=== PATIENT | female | born 1960 | race Caucasian/White ===

== ENCOUNTER → 2017-06-10 | Outpatient (CLI) | payer SELFPAY ==
[2017-06-21 14:26] LABS: Source CERV/ENDOCERVICAL
== END | disposition home or self-care (01) ==
LOC: LAB SHORT 19:27 → LAB 19:27
PROVIDERS: Internal Medicine
DX: Z01.419 Encounter for gynecological examination (general) (routine) without abnormal findings (principal); R87.810 Cervical high risk human papillomavirus (HPV) DNA test positive; R87.610 Atypical squamous cells of undetermined significance on cytologic smear of cervix (ASC-US); Z87.42 Personal history of other diseases of the female genital tract
CPT/HCPCS: G0145

== ENCOUNTER → 2017-06-10 | Outpatient (CLI) | payer SELFPAY | END | disposition home or self-care (01) | LOC: LAB SHORT 08:18 → PLD 08:18 | DX: C53.9 Malignant neoplasm of cervix uteri, unspecified (principal) | CPT/HCPCS: 88305 ==

== ENCOUNTER → 2023-04-21 | Outpatient (CLI) | payer MEDICARE ==
[2023-04-28 18:56] LABS: HPV GENOTYPE 16 BY PCR Negative; HPV GENOTYPE 18 BY PCR Negative; HPV SOURCE Cerv/Endocerv; HPV, OTHER HIGH RISK BY PCR Negative
== END ==
LOC: LAB SHORT 13:42 → LAB 13:42
PROVIDERS: Internal Medicine
DX: Z00.00 Encounter for general adult medical examination without abnormal findings (principal); Z91.89 Other specified personal risk factors, not elsewhere classified
CPT/HCPCS: 87624; 88142

== ENCOUNTER → 2023-09-22 | Outpatient (CLI) | payer MEDICARE ==
[~2023-09-22] MED LIST: LOSARTAN POTASS25 M2 PO
[2023-09-22 15:36] LABS: BASOPHILS ABSOLUTE AUTO 0.04 K/mm3 (0.00-0.23); BASOPHILS PERCENT AUTO 0 % (0-2); EOSINOPHILS ABSOLUTE AUTO 0.17 K/mm3 (0.00-0.68); EOSINOPHILS PERCENT AUTO 2 % (0-6); Hematocrit 39.5 % (33.0-51.0); Hemoglobin 13.3 g/dL (11.5-16.0); IMMATURE GRAN ABSOLUTE AUTO 0.03 K/mm3 (0.00-0.10); IMMATURE GRAN PERCENT AUTO 0 % (0-1); LYMPHOCYTES PERCENT AUTO 28 % (21-46); MONOCYTES ABSOLUTE AUTO 0.58 K/mm3 (0.16-1.47); MONOCYTES PERCENT AUTO 6 % (4-13); Mean Corpuscular HGB Conc 33.7 g/dL (31.5-36.5); Mean Corpuscular Volume 98 fL (80-100); Mean Platelet Volume 10.3 fL (9.1-12.4); NEUTROPHILS ABSOLUTE AUTO 6.24 K/mm3 (1.96-9.15); NEUTROPHILS PERCENT AUTO 64 % (41-73); Platelet Count 316 K/mm3 (150-400); RDW Coefficient Variation 13.4 % (11.7-14.2); RDW Standard Deviation 48.5 fL (35.1-46.3); Red Blood Cell Count 4.03 M/mm3 (3.80-5.20); White Blood Cell Count 9.76 K/mm3 (4.00-11.30)
[2023-09-22 15:55] LABS: C-REACTIVE PROTEIN, EXT RANGE <0.290 mg/dL (0.000-0.300)
[2023-09-22 16:03] LABS: Alanine Aminotransfer (ALT/SGP 20 U/L (12-78); Albumin, Blood 3.7 g/dL (3.4-5.0); Albumin/Globulin Ratio 1.2 (0.8-1.8); Alk Phos 63 U/L (50-136); Anion Gap 7 mmol/L (3-11); Aspartate Aminotrans (AST/SGOT 16 U/L (12-37); Bilirubin, Total 0.3 mg/dL (0.1-1.0); Blood Urea Nitrogen 19 mg/dL (8-24); Bun/Creatinine Ratio 25.2 (12.0-20.0); CO2, Blood 25 mmol/L (21-32); Calcium, Blood 9.1 mg/dL (8.5-10.1); Chloride, Blood 111 mmol/L (98-108); Creatinine, Blood 0.75 mg/dL (0.40-1.00); Glomerular Filtration Rate 88 (60-); Glucose, Blood 91 mg/dL (70-99); Potassium, Blood 4.4 mmol/L (3.5-5.5); Sodium, Blood 139 mmol/L (136-145); Total Protein, Blood 6.7 g/dL (6.4-8.2)
== END | disposition home or self-care (01) ==
LOC: LAB 11:00 → LAB SHORT 11:00
PROVIDERS: Internal Medicine
DX: H53.2 Diplopia (principal); R51.9 Headache, unspecified
CPT/HCPCS: 80053; 85025; 85651; 86140

== ENCOUNTER 2024-02-04 21:54 | Inpatient (IN) | payer MEDICARE ==
[~2024-02-04] VITALS: Ht 162.6 cm; Wt 69.5 kg
[2024-02-04 22:46] LABS: BASOPHILS ABSOLUTE AUTO 0.05 K/mm3 (0.00-0.23); BASOPHILS PERCENT AUTO 0 % (0-2); EOSINOPHILS ABSOLUTE AUTO 0.15 K/mm3 (0.00-0.68); EOSINOPHILS PERCENT AUTO 1 % (0-6); Hematocrit 40.4 % (33.0-51.0); Hemoglobin 13.6 g/dL (11.5-16.0); IMMATURE GRAN ABSOLUTE AUTO 0.05 K/mm3 (0.00-0.10); IMMATURE GRAN PERCENT AUTO 0 % (0-1); LYMPHOCYTES PERCENT AUTO 15 % (21-46); MONOCYTES ABSOLUTE AUTO 0.76 K/mm3 (0.16-1.47); MONOCYTES PERCENT AUTO 5 % (4-13); Mean Corpuscular HGB 32.9 pg (26.0-34.0); Mean Corpuscular HGB Conc 33.7 g/dL (31.5-36.5); Mean Corpuscular Volume 98 fL (80-100); NEUTROPHILS ABSOLUTE AUTO 11.22 K/mm3 (1.96-9.15); NEUTROPHILS PERCENT AUTO 78 % (41-73); Platelet Count 317 K/mm3 (150-400); RDW Coefficient Variation 13.3 % (11.7-14.2); RDW Standard Deviation 48.3 fL (35.1-46.3); Red Blood Cell Count 4.13 M/mm3 (3.80-5.20); White Blood Cell Count 14.33 K/mm3 (4.00-11.30)
[2024-02-04 23:07] LABS: Albumin, Blood 3.9 g/dL (3.4-5.0); Albumin/Globulin Ratio 1.1 (0.8-1.8); Bilirubin, Total 0.3 mg/dL (0.1-1.0); Calcium, Blood 9.2 mg/dL (8.5-10.1); Creatinine, Blood 0.88 mg/dL (0.40-1.00); Globulin, Blood 3.5 g/dL (2.2-4.0); Potassium, Blood 4.1 mmol/L (3.5-5.5); Total Protein, Blood 7.4 g/dL (6.4-8.2)
[2024-02-05] VITALS (16 sets, daily range): BP systolic 110–165; BP diastolic 65–91
[2024-02-05] MEDS ORDERED: Aspirin 325 MG Tab PO ONE (00:25)
[2024-02-05] MEDS ORDERED: Nitroglycerin 0.4 MG SUBL SL PRN ×2 (00:25→01:30)
[2024-02-05 00:59] LABS: D-Dimer, Quantitative 0.56 mg/L FEU (0.00-0.52)
[2024-02-05 01:24] LABS: Anti-Xa UFH, PHA Monitoring <0.10 IU/mL; International Normalized Ratio 0.92; Prothrombin Time Results 9.9 Sec (9.7-11.5)
[2024-02-05] MEDS ORDERED: NS 1,000 ML IV SCH (01:25)
[2024-02-05] MEDS ORDERED: FLU VACC TS2024-25(6MOS UP)/PF 45 MCG/0.5 ML SYRINGE IM ONE (01:25)
[2024-02-05] MEDS ORDERED: FentaNYL Citrate 50 MCG/ML 2 ML Injection IV PRN ×2 (01:25→04:00)
[2024-02-05] MEDS ORDERED: Ondansetron HCl 2 MG / ML 2ML Vial IV PRN (01:30)
[2024-02-05] MEDS ORDERED: Dose Adjust by Pharmacy XX STA (01:44)
[2024-02-05] MEDS ORDERED: Heparin Sodium 5000 Units/ML 1ML MDV IV ONE (01:45)
[2024-02-05] MEDS ORDERED: Heparin Sodium,Porcine/0.5 NS 500 ML IV SCH (01:45)
[2024-02-05] MEDS ORDERED: Clopidogrel Bisulfate 300 MG Cap PO ONE (02:00)
[2024-02-05] MEDS ORDERED: Atorvastatin 40 MG Tab PO SCH (02:00)
[2024-02-05] MEDS ORDERED: Aspir 8181 MG PO (03:39)
--- NOTE | 2024-02-05 05:35 | NUR ---
SHIFT SUMMARY PT ADMITTED TO PCU FROM ED WITH NSTEMI. CARDIOLOGY CONSULTED BY THIS RN. S/W ANSWERING SERVICE. DR. JOHNSON TO SEE PATIENT IN AM. PT ENDORSES CHEST PAIN UPON ADMISSION, IMPROVED WITH PRN FENTANYL, SEE MAR FOR DETAILS. PT IS HYPERTENSIVE WITH SBP 160'S UPON INITIAL ASSESSMENT. TROPONIN 2104. PT HAS BEEN NPO SINCE ADMISSION. IMAGING DONE, SEE REPORTS FOR DETAILS.
--- NOTE | 2024-02-05 09:00 | NUR ---
AT BEDSIDE: CAME TO BEDSIDE AND ASSESSED PATIENT. SHE STATED SHE WAS HAVING SOME SHOULDER PAIN AND WAS GIVEN FETANYL PER EMAR BY THIS RN. MD NOTIFIED ABOUT HIGH BLOOD PRESSURE AND WHAT HOME MEDICATIONS SHE USES, AWAITING FURTHER ORDERS. STATED TO PATIENT SHE WILL HAVE THE HEART DOCTOR ON BOARD FOR A POSSIBLE ANGIOGRAM TODAY.
--- NOTE | 2024-02-05 09:10 | NUR ---
TO BEDSIDE: CAME TO BEDSIDE TO ASSESS PATIENT AND RECEIVED CONSENT FOR PROCEDURE. STATED HE WILL BE CALLING IN HIS TEAM TO GET AN ANGIOGRAM DONE FOR THE PATIENT TODAY.
[2024-02-05] MEDS ORDERED: Verapamil HCL 2.5 MG/ML 2ML Injection ONE (09:16)
[2024-02-05] MEDS ORDERED: Midazolam HCl 1MG / ML 2ML Vial ONE ×2 (09:17→10:49)
[2024-02-05] MEDS ORDERED: Heparin Sodium 1000 Units/ML 10ML MDV ONE ×2 (09:17→10:02)
[2024-02-05] MEDS ORDERED: NS 250 ML IV ONE (09:17)
[2024-02-05] MEDS ORDERED: NS 2,000 ML IV ONE (09:17)
[2024-02-05] MEDS ORDERED: FentaNYL Citrate 50 MCG/ML 2 ML Injection ONE ×3 (09:17→11:58)
[2024-02-05] MEDS ORDERED: Nitroglycerin 2 MG/20 ML BTL ONE (09:18)
[2024-02-05 09:29] LABS: Albumin, Blood 3.2 g/dL (3.4-5.0); Albumin/Globulin Ratio 1.1 (0.8-1.8); Bilirubin, Total 0.4 mg/dL (0.1-1.0); Bun/Creatinine Ratio 27.6 (12.0-20.0); Calcium, Blood 8.9 mg/dL (8.5-10.1); Creatinine, Blood 0.72 mg/dL (0.40-1.00); Total Protein, Blood 6.2 g/dL (6.4-8.2)
[2024-02-05 09:32] LABS: BASOPHILS ABSOLUTE AUTO 0.04 K/mm3 (0.00-0.23); BASOPHILS PERCENT AUTO 0 % (0-2); EOSINOPHILS ABSOLUTE AUTO 0.16 K/mm3 (0.00-0.68); EOSINOPHILS PERCENT AUTO 2 % (0-6); Hematocrit 36.1 % (33.0-51.0); Hemoglobin 12.3 g/dL (11.5-16.0); IMMATURE GRAN ABSOLUTE AUTO 0.03 K/mm3 (0.00-0.10); IMMATURE GRAN PERCENT AUTO 0 % (0-1); LYMPHOCYTES ABSOLUTE AUTO 3.28 K/mm3 (0.84-5.20); LYMPHOCYTES PERCENT AUTO 34 % (21-46); MONOCYTES ABSOLUTE AUTO 0.61 K/mm3 (0.16-1.47); MONOCYTES PERCENT AUTO 6 % (4-13); Mean Corpuscular HGB 32.9 pg (26.0-34.0); Mean Corpuscular HGB Conc 34.1 g/dL (31.5-36.5); Mean Corpuscular Volume 97 fL (80-100); Mean Platelet Volume 9.4 fL (9.1-12.4); NEUTROPHILS ABSOLUTE AUTO 5.67 K/mm3 (1.96-9.15); NEUTROPHILS PERCENT AUTO 58 % (41-73); Platelet Count 301 K/mm3 (150-400); RDW Coefficient Variation 13.2 % (11.7-14.2); RDW Standard Deviation 47.5 fL (35.1-46.3); Red Blood Cell Count 3.74 M/mm3 (3.80-5.20); White Blood Cell Count 9.79 K/mm3 (4.00-11.30)
--- NOTE | 2024-02-05 09:49 | NUR ---
PATIENT LEFT TO [facility]ARMACY CALLED ABOUT HEPARIN PAUSED.
[2024-02-05] MEDS ORDERED: Clopidogrel Bisulfate 300 MG Cap ONE (10:31)
[2024-02-05] MEDS ORDERED: Atropine Sulfate 0.1 MG/ML 10ML SYR ONE (10:47)
--- NOTE | 2024-02-05 12:53 | NUR ---
PT ARRIVED BACK TO PCU 2 VIA HOSPITAL BED FROM [facility] MACHINE TENDER POST ANGIO AT 1250. PT ARRIVED WITH TR BAND TO R RADIAL WITH ARM BOARD. NO HEMATOMA OR BRUISING NOTED TO R WRIST. VSS. MAP >65. PT A&OX4. WAS ABLE TO AMBULATE TO THE BATHROOM WITH STANDBY ASSIST. PT DENIES ANY CP OR SOB AT THIS TIME.
[2024-02-05] MEDS ORDERED: NS 750 ML IV ONE (13:15)
--- NOTE | 2024-02-05 13:50 | NUR ---
PATIENT ARRIVED BACK TO UNIT AND VITAL SIGNS STABLE. PATIENT COMPLAINING ABOUT MILD PAIN IN THE RIGHT RADIAL ACCESS SITE, CALLED MD TO GET TYLENOL ADDED TO EMAR. FLUIDS STARTED AND AT BEDSIDE. PATIENT ATE LUNCH.
--- NOTE | 2024-02-05 17:11 | NUR ---
END OF SHIFT SUMMARY: PATIENT IS ALERT AND ORIENTED X4 AND COOPERATIVE WITH HER CARE. IS SATTING >92% ON ROOM AIR, EVEN AND UNLABORED BREATHING. ON TELE SHWOING SINUS WITH RATE IN 70'S. PATIENT STATED THIS MORNING SHE HAD MORE SHOULDER PAIN THAT FELT LIKE IT WAS RADIATING TO HER CHEST AND WAS GIVEN FETANYL PER EMAR. HAD AN ANGIOGRAM DONE AND TWO STENTS WERE PLACED. RIGHT RADIAL ACCESS SITE WAS RECOVERED WELL WITH NO HEMATOMA OR BLEEDING, HAS A CLEAR DRESSING WITH WRIST BOARD PLACED. PATIENT AWARE NOT TO PUT ALL WEIGHT ON WRIST. VITAL SIGNS STABLE AND PATIENT DENIED ANY CHEST PAIN SINCE ANGIOGRAM. HAD FAMILY AT BEDSIDE AND WAS ABLE TO GET REST. NO SIGNIFICANT EVENTS, WILL CONTINUE TO MONITOR UNTIL ONCOMING GRAVEL ROOFER RN.
[2024-02-06 03:26] VITALS: BP 132/67
--- NOTE | 2024-02-06 05:13 | NUR ---
SHIFT SUMMARY PT IS S/P ANGIO. RIGHT RADIAL SITE RECOVERED WITHOUT SITE COMPLICATION. NO ACUTE EVENTS OVERNIGHT.
[2024-02-06 07:27] VITALS: BP 139/78
[2024-02-06] MEDS ORDERED: Aspirin 81 MG Chew PO SCH (09:00)
[2024-02-06] MEDS ORDERED: Clopidogrel Bisulfate 75 MG Tab PO SCH (09:00)
[2024-02-06] MEDS ORDERED: Losartan Potassium 25 MG Tab PO SCH (10:05)
[2024-02-06] MEDS ORDERED: Metoprolol Succinate 25 MG TABCR PO SCH (10:05)
[2024-02-06 11:07] LABS: Hemoglobin 11.7 g/dL (11.5-16.0); Mean Corpuscular HGB 32.3 pg (26.0-34.0); Mean Corpuscular HGB Conc 33.4 g/dL (31.5-36.5); Mean Corpuscular Volume 97 fL (80-100); Mean Platelet Volume 9.2 fL (9.1-12.4); Platelet Count 288 K/mm3 (150-400); RDW Coefficient Variation 13.3 % (11.7-14.2); RDW Standard Deviation 48.3 fL (35.1-46.3); Red Blood Cell Count 3.62 M/mm3 (3.80-5.20); White Blood Cell Count 10.15 K/mm3 (4.00-11.30)
[2024-02-06 11:29] LABS: Anion Gap 8 mmol/L (3-11); Blood Urea Nitrogen 15 mg/dL (8-24); Bun/Creatinine Ratio 20.4 (12.0-20.0); CO2, Blood 23 mmol/L (21-32); Calcium, Blood 8.4 mg/dL (8.5-10.1); Chloride, Blood 117 mmol/L (98-108); Creatinine, Blood 0.74 mg/dL (0.40-1.00); Glomerular Filtration Rate 90 (60-); Glucose, Blood 94 mg/dL (70-99); Phosphorus, Blood 2.3 mg/dL (2.5-4.9); Potassium, Blood 4.4 mmol/L (3.5-5.5); Sodium, Blood 144 mmol/L (136-145)
[2024-02-06 11:49] VITALS: BP 136/62
--- NOTE | 2024-02-06 13:47 | NUR ---
MD CALLED: VOICEMAIL PLACED TO MD AWAITING A CALL BACK.
--- NOTE | 2024-02-06 14:04 | NUR ---
CALL PLACED TO MD NO ANSWER AND DISCUSSED WITH HVAC MECHANIC.
[2024-02-06] MEDS ORDERED: ATOR40TA PO (15:28)
[2024-02-06] MEDS ORDERED: CLOP75 PO (15:28)
[2024-02-06] MEDS ORDERED: METO25ER PO (15:29)
[2024-02-06] MEDS ORDERED: NITR.4SL SL (15:30)
[2024-02-06] MEDS ORDERED: K-Phos Origina500 MG PO (15:32)
--- NOTE | 2024-02-06 16:03 | NUR ---
DISCHARGE NOTE: PATIENT IS ALERT AND ORIENTED X4 AND SATTING >92% ON ROOM AIR. WENT OVER DISCHARGE INFORMATION AND PATIENT WAS AWARE OF THE NEW MEDICATIONS THAT WERE STARTED AND SENT TO [facility]. PATIENT KNOWS TO FOLLOW UP WITH PRIMARY CARE PROVIDER WITHIN ONE WEEK. IV REMOVED AND COBAND WITH GAUZE PLACED ON IT. PATIENT TOOK BELONGINGS AND WALKED OUT TO MEET WHO IS HER RIDE.
== END 2024-02-06 15:52 | disposition home or self-care (01) | DRG 322 ==
LOC: ER 21:54 → ERHOLD 21:55 → PCU 02-05 03:24
PROVIDERS: Internal Medicine; Student in an Organized Health Care Education/Training Program; ADMIT Internal Medicine
PROC: 027035Z Dilation of Coronary Artery, One Artery with Two Drug-eluting Intraluminal Devices, Percutaneous Approach (ICD-10-PCS; principal; 2024-02-05)
PROC: B2111ZZ Fluoroscopy of Multiple Coronary Arteries using Low Osmolar Contrast (ICD-10-PCS; 2024-02-05)
PROC: 4A023N7 Measurement of Cardiac Sampling and Pressure, Left Heart, Percutaneous Approach (ICD-10-PCS; 2024-02-05)
DX: I21.4 Non-ST elevation (NSTEMI) myocardial infarction (principal); I10 Essential (primary) hypertension; F17.210 Nicotine dependence, cigarettes, uncomplicated; E83.39 Other disorders of phosphorus metabolism; Z79.82 Long term (current) use of aspirin; Z79.899 Other long term (current) drug therapy; M25.519 Pain in unspecified shoulder; Z71.6 Tobacco abuse counseling; I25.5 Ischemic cardiomyopathy
CPT/HCPCS: 36415; 71046; 71275; 74174; 76937; 80053; 80069; 83036; 83690; 83880; 84443; 84484; 85025; 85027; 85347; 85379; 85520; 85610; 85730; 92978; 92979; 93005; 93010; 93306; 93458; 93571; 93572; 96365-59; 96374-59; 96376; 99152; 99153; 99285-25; A9270; C1725; C1753; C1769; C1874; C1887; C1894; C9600; G0378; J0461; J1644; J2250; J3010; J7030; J7050; Q9967

== ENCOUNTER 2024-09-12 09:17 | Day surgery (SDC) | payer MEDICARE ==
[2024-09-12] VITALS (21 sets, daily range): BP systolic 104–170; BP diastolic 55–74
[~2024-09-12] VITALS: Ht 157 cm; Wt 69.6 kg
[~2024-09-12 09:17] MED LIST changes: +Aspir 8181 MG PO; +CLOP75 PO; +K-Phos Origina500 MG PO; +LIPITOR80 MG PO; +METO25ER PO; +NITR.4SL SL; +SODIUM HYALURONATE PO
[2024-09-12] MEDS ORDERED: Chlorhexidine Mouth Care 15 ML UDC MT SCH (10:30)
[2024-09-12] MEDS ORDERED: Ropivacaine 0.5% HCl/Pf 123.125 MG,EPINEPHrine HCL 0.25 MG,Ketorolac Tromethamine 15 MG... INFIL SCH (10:30)
[2024-09-12] MEDS ORDERED: CeFAZolin Sodium 2,000 MG in NS 100 ML IV SCH ×2 (10:30→20:00)
[2024-09-12] MEDS ORDERED: Tranexamic Acid 100 ML IV SCH (10:37)
[2024-09-12] MEDS ORDERED: Mepivacaine MPF 2% Inj 20 ML Vial ONE (10:38)
[2024-09-12] MEDS ORDERED: AMLODIPINE BESY10 MG PO (10:54)
[2024-09-12] MEDS ORDERED: NITR.4SL SL (10:57)
[2024-09-12] MEDS ORDERED: Midazolam HCl 1MG / ML 2ML Vial ONE (11:28)
[2024-09-12] MEDS ORDERED: FentaNYL Citrate 50 MCG/ML 2 ML Injection ONE ×3 (11:28→13:54)
[2024-09-12] MEDS ORDERED: ePHEDrine Sulfate 50 MG/ML 1ML Injection ONE (11:49)
[2024-09-12] MEDS ORDERED: Ondansetron HCl 2 MG / ML 2ML Vial IV PRN ×2 (11:50→12:35)
[2024-09-12] MEDS ORDERED: Metoclopramide HCl 5MG / ML 2ML Vial IV PRN (11:50)
[2024-09-12] MEDS ORDERED: Magnesium Hydroxide Conc 10 ML UDC PO PRN (11:55)
[2024-09-12] MEDS ORDERED: HYDROmorphone HCl/Pf 1MG SYR IV PRN ×3 (12:00→12:35)
[2024-09-12] MEDS ORDERED: HYDROmorphone HCl/Pf 1MG SYR ONE ×3 (12:08→14:10)
[2024-09-12] MEDS ORDERED: Dexamethasone Sod Phos 10 MG/ML 1ML VIAL ONE (12:13)
[2024-09-12] MEDS ORDERED: Ondansetron HCl 2 MG / ML 2ML Vial ONE (12:13)
[2024-09-12] MEDS ORDERED: FentaNYL Citrate 50 MCG/ML 2 ML Injection IV PRN ×2 (12:35)
[2024-09-12] MEDS ORDERED: Prochlorperazine Edisylate 10 mg Vial IV PRN (12:40)
--- NOTE | 2024-09-12 13:45 | NUR ---
09/12/24 Kezia Almonte AFTER DRAPING WAS REMOVED SKIN TEAR WAS NOTED ON IN THE MIDDLE OF THE RIGHT ANTERIOR CALF. THE SIZE WAS ABOUT 1 INCH BY 3 INCH. CARLO GRAVES WAS NOTIFIED. HE CAME INTO THE OR AND DRESSED THE WOUND WITH MASTISOL, STERI STRIPS, 4X4 AND TEGADERM.
[2024-09-12] MEDS ORDERED: Ketorolac Tromethamine 30mg Vial ONE (14:06)
--- NOTE | 2024-09-12 14:43 | NUR ---
POST OP ARRIVAL TO SURGICAL UNIT VIA HOSPITAL BED. ALERT, ORIENTED, BUT PAINFUL. ASSESSMENT CHARTED. DENIES N/V SO SNACKS & DRINKS GIVEN. WILL WEAN O2 APPROP.
[2024-09-12] MEDS ORDERED: Ketorolac Tromethamine 15mg Vial IV SCH (18:00)
--- NOTE | 2024-09-13 04:06 | NUR ---
NOC SUMMARY- PT PAIN MAANGED WELL. PT HAS BEEN RESTING COMFORTABLY. PT AMBULATORY AND VOIDING. DRESSING IS C/D/I. CALL LIGHT IN REACH.
[2024-09-13 05:41] LABS: BASOPHILS ABSOLUTE AUTO 0.02 K/mm3 (0.00-0.23); BASOPHILS PERCENT AUTO 0 % (0-2); EOSINOPHILS ABSOLUTE AUTO 0.00 K/mm3 (0.00-0.68); EOSINOPHILS PERCENT AUTO 0 % (0-6); Hematocrit 30.1 % (33.0-51.0); Hemoglobin 10.5 g/dL (11.5-16.0); IMMATURE GRAN ABSOLUTE AUTO 0.05 K/mm3 (0.00-0.10); IMMATURE GRAN PERCENT AUTO 0 % (0-1); LYMPHOCYTES ABSOLUTE AUTO 0.97 K/mm3 (0.84-5.20); LYMPHOCYTES PERCENT AUTO 6 % (21-46); MONOCYTES ABSOLUTE AUTO 0.77 K/mm3 (0.16-1.47); MONOCYTES PERCENT AUTO 5 % (4-13); Mean Corpuscular HGB Conc 34.9 g/dL (31.5-36.5); Mean Corpuscular Volume 98 fL (80-100); NEUTROPHILS ABSOLUTE AUTO 15.15 K/mm3 (1.96-9.15); NEUTROPHILS PERCENT AUTO 89 % (41-73); NRBC ABSOLUTE 0.00 K/mm3 (0.00-0.02); NRBC Auto 0.0 /100 WBC (0.0-0.2); Platelet Count 352 K/mm3 (150-400); RDW Coefficient Variation 13.2 % (11.7-14.2); RDW Standard Deviation 47.1 fL (35.1-46.3)
[2024-09-13 06:28] LABS: Anion Gap 6.0 mmol/L (3-11); Blood Urea Nitrogen 27.0 mg/dL (8-24); CO2, Blood 27.0 mmol/L (21-32); Calcium, Blood 8.3 mg/dL (8.5-10.1); Chloride, Blood 107.0 mmol/L (98-108); Creatinine, Blood 0.82 mg/dL (0.40-1.00); Glucose, Blood 137.0 mg/dL (70-99); Potassium, Blood 4.3 mmol/L (3.5-5.5); Sodium, Blood 136.0 mmol/L (136-145)
[2024-09-13 07:23] VITALS: BP 138/77
--- NOTE | 2024-09-13 09:51 | NUR ---
ASSUMPTION ASSUMED CARE OF PT @0700. AXO4. VSS. UP IN CHAIR. TOLERATED PO BREAKFAST WELL. PRINEO DRESSING CDI TO R KNEE. WRAPPED WITH OSMIN WRAP AND COMPRESSION STOCKINGS. PAINFUL THIS AM, MEDICATED PER EMAR. PHYSICAL THERAPY WORKED WITH PT - JOSÉ MIGUEL TO DC. DC INSTRUCTIONS PROVIDED TO PT @7540. PT CALLING FOR RIDE NOW.
--- NOTE | 2024-09-13 10:10 | NUR ---
PT WHEELED OUT OF FACILITY WITH STAFF TO @1012. WITH DC INSTRUCTIONS AND BELONGINGS IN HAND.
== END 2024-09-13 10:15 | disposition home or self-care (01) ==
LOC: ORSCMMR 09:17 → ORD 10:00 → ORSCMMR 10:00 → SURS 14:25 → ORSCMMR 09-13 10:15
PROVIDERS: Orthopaedic Surgery
PROC: 8E0Y0CZ Robotic Assisted Procedure of Lower Extremity, Open Approach (ICD-10-PCS; principal; 2024-09-12 10:00)
PROC: 0SRC0JA Replacement of Right Knee Joint with Synthetic Substitute, Uncemented, Open Approach (ICD-10-PCS; principal; 2024-09-12 10:00)
DX: M17.11 Unilateral primary osteoarthritis, right knee (principal); I10 Essential (primary) hypertension; I25.10 Atherosclerotic heart disease of native coronary artery without angina pectoris; Z87.891 Personal history of nicotine dependence; Z79.02 Long term (current) use of antithrombotics/antiplatelets; Z79.899 Other long term (current) drug therapy
CPT/HCPCS: 36415; 73560-RT; 80048; 85025; 97116; 97161; 97530; A9270; C1713; C1776; J0165; J0670; J0690; J0735; J1100; J1171; J1885; J2250; J2405; J2704; J2795; J3010; J7120

== ENCOUNTER 2024-10-31 06:09 | Day surgery (SDC) | payer MEDICARE ==
[~2024-10-31] VITALS: Ht 154.9 cm; Wt 69.0 kg
[~2024-10-31 06:09] MED LIST changes: +AMLODIPINE BESY10 MG PO; +GABA100 PO; +Norco 5-325 Ta1 EACH PO; +ONDA4ODT MM; +POTASSIUM99 M3 PO
[2024-10-31 06:43] VITALS: BP 146/85
--- NOTE | 2024-10-31 06:59 | NUR ---
Wheelchaired into Day Surgery. History, Chart, Medications and Allergies reviewed before start of procedure. Pre-Op teaching done. Pt verbalizes understanding. Patient States Post-Procedure ride home has been arranged.
[2024-10-31] MEDS ORDERED: FentaNYL Citrate 50 MCG/ML 2 ML Injection ONE ×2 (07:22→08:18)
[2024-10-31] MEDS ORDERED: Morphine Sulfate 4 MG/1 ML Injection IV PRN (07:30)
[2024-10-31] MEDS ORDERED: FentaNYL Citrate 50 MCG/ML 2 ML Injection IV PRN ×2 (07:30→07:35)
[2024-10-31] MEDS ORDERED: Ondansetron HCl 2 MG / ML 2ML Vial IV PRN (07:30)
[2024-10-31] MEDS ORDERED: HYDROmorphone HCl/Pf 1MG SYR IV PRN (07:35)
[2024-10-31] MEDS ORDERED: Metoclopramide HCl 5MG / ML 2ML Vial IV PRN (07:35)
[2024-10-31 07:48] VITALS: BP 108/62
[2024-10-31] MEDS ORDERED: OxyCODONE 5 mg/Acetamin 325 mg TABLET PO PRN (07:50)
[2024-10-31 08:03] VITALS: BP 108/62
[2024-10-31 08:22] VITALS: BP 138/72
[2024-10-31] MEDS ORDERED: FentaNYL Citrate 50 MCG/ML 2 ML Injection IV ONE (08:25)
[2024-10-31 08:37] VITALS: BP 139/69
[2024-10-31 08:59] VITALS: BP 136/71
--- NOTE | 2024-10-31 09:12 | NUR ---
PT'S IV NOTED TO BE LEAKING. D/C'D TO FOR DISCHARGE. IV NOTED TO BE INFILTRATED W/ ABOUT A 4 IN DIAMETER COLD SWOLLEN AREA. PT DENIES ANY PAIN AND WAS UNAWARE. PT ENCOURAGE TO BE AWARE OF IV NARCOTIC'S THAT MAY SLOWLY RELEASE AND TO APPLY WARM PACKS AT HOME. Patient up ABLE TO DRESS HERSELF EXCEPT FOR GETTING HER PANTS ON. PT ABLE TO SELF TRANSFER TO W/C BUT IS NOT WANTING TO BEAR WEIGHT ON RIGHT LEG. PT ENCORUAGE TO USE WALKER AT HOME FOR STABILITY. Discharge instructions reviewed with patient. Patient verbalizes understanding. Copy given to patient to take home. Discharged via wheelchair to private car for ride home.
== END 2024-10-31 09:15 | disposition home or self-care (01) ==
LOC: ORD 06:09 → ORSCMMR 06:09 → ORD 07:30
PROVIDERS: Orthopaedic Surgery
PROC: 0SWCXJZ Revision of Synthetic Substitute in Right Knee Joint, External Approach (ICD-10-PCS; principal; 2024-10-31 07:30)
DX: M24.661 Ankylosis, right knee (principal); T84.82XA Fibrosis due to internal orthopedic prosthetic devices, implants and grafts, initial encounter; Z96.651 Presence of right artificial knee joint; I10 Essential (primary) hypertension; E78.5 Hyperlipidemia, unspecified; I25.10 Atherosclerotic heart disease of native coronary artery without angina pectoris; K21.9 Gastro-esophageal reflux disease without esophagitis; E11.9 Type 2 diabetes mellitus without complications; Z86.73 Personal history of transient ischemic attack (TIA), and cerebral infarction without residual deficits; R56.9 Unspecified convulsions; Z47.1 Aftercare following joint replacement surgery; Z79.82 Long term (current) use of aspirin; Z79.02 Long term (current) use of antithrombotics/antiplatelets; Z79.899 Other long term (current) drug therapy; Z87.891 Personal history of nicotine dependence
CPT/HCPCS: 73560-RT; A9270; J2704; J3010; J7120